=== PATIENT | male | born 1975 | race Caucasian/White ===

== ENCOUNTER 2024-07-16 22:42 | Emergency (ER) | payer MEDICAID, SELFPAY ==
[2024-07-16 23:12] VITALS: BP 147/80; PULSE 115; RESP 18; TEMP 36.1; O2SAT 95
--- NOTE | 2024-07-16 23:19 | PD.EDHEAD ---
ED Head Injury RME/HPI General Chief complaint: Fall Stated complaint: FELL, HIT HEAD, LACERATION Time Seen by Provider: 07/16/24 22:47 Source: patient and other (caregiver) Arrival date/time: 07/16/24 22:42 Mode of arrival: wheelchair Limitations: no limitations RME / HPI RME / HPI Narrative: 49yof presents to ED for facial laceration. Caregiver states patient got out of his wheelchair and fell hitting left side of face against a chair, obtained laceration to left eyebrow. No loc reported. No medications or treatments cover stripper. Tetanus vacc utd. Related Data Home Medications ?Medication ?Instructions ?Recorded ?Confirmed clonidine HCl 0.1 mg tablet 0.1 mg PO TID #0 tabs 02/21/14 08/24/23 lamotrigine 100 mg tablet 200 mg PO BID #0 tabs 02/21/14 08/24/23 (Lamictal) montelukast 10 mg tablet 10 mg PO QDAY #0 tabs 02/21/14 08/24/23 (Singulair) atorvastatin 10 mg tablet (Lipitor) 10 mg PO QPM 10/09/18 08/24/23 acetaminophen 325 mg tablet 650 mg PO Q6H PRN Fever Or Pain 04/21/19 08/24/23 calcium 600 mg (as 1 tab PO QDAY 04/21/19 08/24/23 carbonate)-vitamin D3 10 mcg (400 unit) tablet (Calcium 600 + D(3)) divalproex 500 mg tablet,delayed 500 mg PO DAILY 04/21/19 08/24/23 release (Depakote) loratadine 10 mg tablet 10 mg PO DAILY 04/21/19 08/24/23 metoprolol succinate 50 mg 50 mg PO QDAY 04/21/19 08/24/23 tablet,extended release 24 hr polyethylene glycol 3350 17 gram 17 g PO QAM 04/21/19 08/24/23 oral powder packet risperidone 0.5 mg tablet 0.5 mg PO BID 04/21/19 08/24/23 risperidone 4 mg tablet 4 mg PO BID 04/21/19 08/24/23 aspirin 81 mg tablet,delayed 81 mg PO QDAY 05/24/20 08/24/23 release (Adult Aspirin Regimen) amitriptyline 50 mg tablet 50 mg PO HS 09/19/22 08/24/23 divalproex 250 mg tablet,delayed 250 mg PO QPM 09/19/22 08/24/23 release loperamide 2 mg capsule 2 mg PO Q6H PRN Diarrhea 09/19/22 08/24/23 quetiapine 100 mg tablet 100 mg PO BID 09/19/22 08/24/23 Allergies Allergy/AdvReac Type Severity Reaction Status Date / Time No Known Allergies Allergy Verified 12/19/23 10:08 Review of Systems Review of Systems Systems Reviewed: All systems reviewed, normal except as documented Constitutional Constitutional: Denies headache(s) ENT Ears, Nose, Mouth, and Throat: Denies dizziness and Denies headache(s) Cardiovascular Cardiovascular: Denies syncope Gastrointestinal Gastrointestinal: Denies nausea and Denies vomiting Integumentary/Breasts Comments: Reports laceration Neurologic Neurologic: Denies dizziness, Denies headache(s) and Denies syncope Past Medical History Past Medical History NEUROLOGIC: Positive Seizures CARDIAC: Positive Hypertension GASTROINTESTINAL: Positive Gastroesophageal Reflux Disease PSYCHO/SOCIAL: Positive Depression and Behavior Problems OTHER HISTORY: Positive Developmental Delay and Falls Social History SMOKING STATUS: Never smoker SECOND HAND EXPOSURE: No SUBSTANCE USE: does not use ED Exam General Limitations: Present no limitations General appearance: Present alert and in no apparent distress Head Head exam: Present normocephalic and other (3cm laceration to left eyebrow with surrounding swelling, contusion. Moderate gaping, no active bleeding) Eye Eye exam: Present normal appearance, PERRL and EOMI ENT ENT exam: Present normal exam and mucous membranes moist Neck Neck exam: Present normal inspection and full ROM Chest Chest inspection: Present normal inspection and symmetric chest wall rise Respiratory Respiratory exam: Present normal lung sounds bilaterally; Absent respiratory distress Cardiovascular Cardiovascular exam: Present normal rhythm and tachycardia Extremities Exam Extremities exam: Absent tenderness Neurological Exam Neurological exam: Present alert and other (Neuro at baseline) Psychiatric Psychiatric exam: Present normal affect and normal mood Skin Skin exam: Present warm, dry and normal color Course Quality Measures none Vital Signs Vital signs: Vital Signs Temperature 97 F 07/16/24 23:12 Pulse Rate 115 H 07/16/24 23:12 Respiratory Rate 18 07/16/24 23:12 Blood Pressure 147/80 H 07/16/24 23:12 Pulse Oximetry (%) 95 07/16/24 23:12 Oxygen Delivery Method Room Air 07/16/24 23:12 Procedures -ED Laceration Laceration 1: Site: face (left eyebrow) Side (If applicable): left Size (cm): 3 Description: linear Depth: simple, single layer Local Anesthetic: lidocaine 1% Amount of anesthesia used (mL): 2 Size (cm): 4-0 Number of sutures: 2 Technique: simple, interrupted Head Injury MDM Narrative MDM Narrative:: 49yof presents to ED for facial laceration. Caregiver states patient got out of his wheelchair and fell hitting left side of face against a chair, obtained laceration to left eyebrow. No loc reported. No medications or treatments cover stripper. Tetanus vacc utd. Laceration repaired with sutures. Patient tolerated procedure well, condition improved. Home wound care discussed. Instructed to return in 7 to 10 days for suture removal. Stable for discharge, RTED precautions given. Patient data External records reviewed:: [facility] previous records (12/19/23 ED visit for chin laceration) Clinical information provided by:: superintendent meter tests Social determinants that could affect healthcare access:: none Patient has the following chronic illnesses:: developmental delay How is presenting disease/condition affected by chronic disease/condition?: exacerbated by Evaluation data The following diagnostics were reviewed and interpreted by me:: other (specify) (none) Lab and/or radiology exams considered but not ordered:: Facial CT: do not suspect fx based on hx and exam Interpretation Summary: na Medications / Prescriptions Medications or Prescriptions considered but not ordered:: no antibiotics recommended at this time Medication administrations:: lidocaine local infiltration Consultations Consultation(s) initiated? (list below): No Diagnosis Differential diagnosis head injury: other (laceration, abrasion, avulsion, contusion, hematoma) Most likely diagnosis given after review of the tests above:: facial laceration Admission Indicated Admission indicated?: not indicated Admission Request Was there a request for admission?: No Disposition Plan Disposition Plan: Discharge Discharge Attestation Discharge Attestation: The patient and all family members were given an opportunity to ask questions and understood the discharge instructions. Discharge instructions specifically effects, indications for sooner follow up or return to the emergency department, and the expected course of current diagnosis. Patient condition: Stable Discharge Plan Plan Patient Disposition: HOME (Self Care) Patient condition on transfer: Stable Prescriptions/Referrals Prescriptions/Med Rec: No Action clonidine HCl 0.1 MG tablet 0.1 mg PO TID Qty: 0 montelukast [Singulair] 10 MG tablet 10 mg PO QDAY Qty: 0 lamotrigine [Lamictal] 100 MG tablet 200 mg PO BID Qty: 0 aspirin [Adult Aspirin Regimen] 81 mg Tablet,Delayed Release (Dr/Ec) 81 mg PO QDAY atorvastatin [Lipitor] 10 mg Tablet 10 mg PO QPM acetaminophen 325 mg Tablet 650 mg PO Q6H PRN (Reason: Fever Or Pain) polyethylene glycol 3350 17 gram Powder In Packet 17 g PO QAM metoprolol succinate 50 mg Tablet Extended Release 24 Hr 50 mg PO QDAY Rx Instructions: HOLD IF LESS THAN 100/60 OR HR LESS THAN 60/MIN FOR HYPERTENTION. risperidone 4 mg Tablet 4 mg PO BID Rx Instructions: GIVE 4 MG WITH 0.5 MG FOR TOTAL OF 4.5MG BID loratadine 10 mg Tablet 10 mg PO DAILY Rx Instructions: FOR NASAL DISCHARGE OR STUFFINESS. risperidone 0.5 mg Tablet 0.5 mg PO BID Rx Instructions: GIVE 0.5 MG WITH 4 MG FOR TOTAL OF 4.5 MG BID. calcium carbonate-vitamin D3 [Calcium 600 + D(3)] 600 mg(1,500mg) -400 unit Tablet 1 tab PO QDAY divalproex [Depakote] 500 mg Tablet,Delayed Release (Dr/Ec) 500 mg PO DAILY divalproex 250 mg tablet,delayed release (DR/EC) 250 mg PO QPM loperamide 2 mg Capsule 2 mg PO Q6H PRN (Reason: Diarrhea) amitriptyline 50 mg tablet 50 mg PO HS quetiapine 100 mg tablet 100 mg PO BID Referrals: No Primary/Family,Physician [Primary Care Provider] - In 1 week Problem List Clinical Impression: Facial laceration Patient/Caregiver Discharge Instructions Education Materials: ED Laceration, Face: Stitches or Tape Additional Instructions: Return to PCP or ER in 7 to 10 days for suture removal Print Language: Chadian Stand Alone Forms: Sussy Award Info., Patient Portal Info Letter PA/BOOTMAKER Supervising Physician PA/BOOTMAKER Supervising Physician: Shweta
== END 2024-07-16 23:44 | disposition home or self-care (01) ==
PROVIDERS: Emergency Provider Emergency Medicine
DX: S01.81XA Laceration without foreign body of other part of head, initial encounter (principal); W05.0XXA Fall from non-moving wheelchair, initial encounter
CPT/HCPCS: 12013; 99283

== ENCOUNTER 2024-08-28 06:35 | Day surgery (SDC) | payer MEDICAID, SELFPAY ==
[2024-08-25 11:17] VITALS: BMI 23.7
[2024-08-28] VITALS (11 sets, daily range): BP systolic 128–143; BP diastolic 84–103; PULSE 70–98; RESP 11–18; TEMP 36.4–36.8; O2SAT 94–97; BMI 25.0
[2024-08-28] MEDS: DiphenhydrAMINE INJ 50 MG/ML VIAL 25 MG IV (07:27)
[2024-08-28] MEDS: SODIUM CHLORIDE 0.9% 500 ML 500 ML 20 ML IV (07:27)
[2024-08-28] MEDS: fentaNYL CIT INJ 50 mCg/ML AMP 2ML (ASD USE ONLY) IV (07:27)
[2024-08-28] MEDS: MIDAZOLAM INJ 1 MG/ML VIAL 2 ML (ASD USE ONLY) 2 MG IV (07:31)
== END 2024-08-28 08:31 | disposition home or self-care (01) ==
PROVIDERS: PCP Nurse Practitioner Family; Referring Provider Surgery; Visit Provider Surgery
PROC: 0DBE8ZX Excision of Large Intestine, Via Natural or Artificial Opening Endoscopic, Diagnostic (ICD-10-PCS; CPT 45380; principal; 2024-08-28 07:30)
DX: D12.4 Benign neoplasm of descending colon (principal); D12.0 Benign neoplasm of cecum; R19.5 Other fecal abnormalities; I10 Essential (primary) hypertension; Z79.899 Other long term (current) drug therapy; Z79.82 Long term (current) use of aspirin
CPT/HCPCS: 45380; J1200; J2250; J3010; J7040

== ENCOUNTER 2024-09-04 15:31 | Emergency (ER) | payer MEDICAID, SELFPAY ==
[2024-09-04 15:33] VITALS: BMI 25.8
[2024-09-04 15:47] VITALS: BP 118/81; PULSE 76; RESP 17; TEMP 36.7; O2SAT 98
--- NOTE | 2024-09-04 16:13 | EDNOTE_ITS ---
<Statement entered by Trina Mckeon MD - 09/07/24 06:24> As co-signing physician, I was present and available for consult prn. I concur with the plan and care as documented by the midlevel provider. ED Head Injury RME/HPI General Chief complaint: Head Injury Stated complaint: LAC TO CHIN S/P FALL TODAY Time Seen by Provider: 09/04/24 15:40 Source: patient Arrival date/time: 09/04/24 15:31 49-year-old male with a history of cerebral palsy, hyperlipidemia, hypertension, presents to the emergency room with a chief complaint of a laceration to his chin after a ground-level fall that occurred today. Patient was wearing his head protection gear. There was no loss of consciousness or vomiting. Mode of arrival: ambulatory Limitations: no limitations Related Data Home Medications ?Medication ?Instructions ?Recorded ?Confirmed clonidine HCl 0.1 mg tablet 0.1 mg PO TID #0 tabs 01/2508/25/24 lamotrigine 100 mg tablet 200 mg PO BID #0 tabs 08/25/24 (Lamictal) montelukast 10 mg tablet 10 mg PO QDAY #0 tabs 08/25/24 (Singulair) atorvastatin 10 mg tablet (Lipitor) 10 mg PO QPM 10/0908/25/24 acetaminophen 325 mg tablet 650 mg PO Q6H PRN Fever Or Pain 04/21/19 08/25/24 calcium 600 mg (as 1 tab PO QDAY 04/21/1908/25 carbonate)-vitamin D3 10 mcg (400 unit) tablet (Calcium 600 + D(3)) divalproex 500 mg tablet,delayed 500 mg PO DAILY 04/2108/25/24 release (Depakote) loratadine 10 mg tablet 10 mg PO DAILY 04/21/1906/20 metoprolol succinate 50 mg 50 mg PO QDAY 04/21/1906/20 tablet,extended release 24 hr polyethylene glycol 3350 17 gram 17 g PO QAM 04/21/19 08/25/24 oral powder packet risperidone 0.5 mg tablet 0.5 mg PO BID 04/21/1908/25 risperidone 4 mg tablet 4 mg PO BID 04/21/19 5 aspirin 81 mg tablet,delayed 81 mg PO QDAY 05/24/20 release (Adult Aspirin Regimen) amitriptyline 50 mg tablet 50 mg PO HS 09/19/22 divalproex 250 mg tablet,delayed 250 mg PO QPM 3 08/25/24 release loperamide 2 mg capsule 2 mg PO Q6H PRN Diarrhea 08/25/24 quetiapine 100 mg tablet 100 mg PO BID 09/19/2208/25 Allergies Allergy/AdvReac Type Severity Reaction Status Date / Time No Known Allergies Allergy Verified 09/04/24 15:32 Review of Systems Review of Systems Systems Reviewed: All systems reviewed, normal except as documented Constitutional Constitutional: Reports system reviewed and no additional complaints, except as documented, Denies fatigue, Denies fever(s), Denies headache(s) and Denies weakness Eyes Eyes: Reports system reviewed and no additional complaints, except as documented, Denies blurry vision and Denies change in vision ENT Ears, Nose, Mouth, and Throat: Reports system reviewed and no additional complaints, except as documented, Denies otalgia, Denies headache(s), Denies nasal congestion, Denies throat swelling and Denies vertigo Cardiovascular Cardiovascular: Reports system reviewed and no additional complaints, except as documented, Denies chest pain, Denies dyspnea and Denies dyspnea on exertion Respiratory Respiratory: Reports system reviewed and no additional complaints, except as documented, Denies chest congestion, Denies cough, Denies dyspnea, Denies dyspnea on exertion and Denies wheezing Gastrointestinal Gastrointestinal: Reports system reviewed and no additional complaints, except as documented, Denies abdominal pain, Denies cramping, Denies nausea and Denies vomiting Genitourinary Genitourinary: Reports system reviewed and no additional complaints, except as documented, Denies dysuria and Denies hematuria Musculoskeletal Musculoskeletal: Reports system reviewed and no additional complaints, except as documented and Denies back pain Integumentary/Breasts Skin/Breast: Reports system reviewed and no additional complaints, except as documented and Reports wounds Neurologic Neurologic: Reports system reviewed and no additional complaints, except as documented, Denies confusion, Denies headache(s), Denies lack of coordination, Denies vertigo and Denies weakness Psychiatric Psychiatric: Reports system reviewed and no additional complaints, except as documented, Denies anxiety, Denies confusion, Denies depression, Denies paranoia, Denies suicidal ideation and Denies tactile hallucinations Endocrine Endocrine: Reports system reviewed and no additional complaints, except as documented and Denies fatigue Hematologic/Lymphatic Hematologic/Lymphatic: Reports system reviewed and no additional complaints, except as documented and Denies lymphadenopathy Allergic/Immunologic Allergic/Immunologic: Reports system reviewed and no additional complaints, except as documented, Denies throat swelling, Denies urticaria and Denies wheezing Past Medical History Past Medical History NEUROLOGIC: Positive Neurological Disorders (BRAIN SHUNT); Negative Seizures CARDIAC: Positive Cardiac Disorders, Hypercholesterolemia and Hypertension; Negative Congestive Heart Failure RESPIRATORY: Negative Chronic Obstructive Pulmonary Disease (COPD) or Asthma GASTROINTESTINAL: Positive Gastroesophageal Reflux Disease; Negative Gastrointestinal Disorders or Hepatitis GENITOURINARY: Negative Genitourinary Disorders or Renal Disease REPRODUCTIVE: Negative Testicular Cancer MUSCULOSKELETAL: Negative Musculoskeletal Disorders ENDOCRINE: Negative Endocrine Disorders, Diabetes Mellitus Type 1 or Diabetes Mellitus Type 2 HEMATOLOGIC: Negative Blood Disorders or Sickle Cell Disease PSYCHO/SOCIAL: Positive Depression and Behavior Problems OTHER HISTORY: Positive Developmental Delay and Falls (UNSTEADY GAIT, USES W/C AT TIMES); Negative Autoimmune Disease, Blood Transfusions, Anesthesia Reactions, MRSA, VRSA, Vancomycin-Resistant Enterococci, Human Immunodeficiency Virus (HIV), Chicken Pox, Measles, Mumps, Rubella (Stateless Measles), Pertussis, Clostridium Difficile, Cancer or Testicular Cancer Surgical History SURGICAL: Positive Brain Shunt; Negative Vasectomy Social History SMOKING STATUS: Never smoker SECOND HAND EXPOSURE: No SUBSTANCE USE: does not use ED Exam General Limitations: Present no limitations General appearance: Present alert and in no apparent distress Head Head exam: Present atraumatic, normocephalic and normal inspection Expanded Head Exam Head exam physical: Present laceration; Absent abrasion, contusion, hematoma, raccoon eyes, Walters's sign, tenderness of temporal artery, CSF rhinorrhea or CSF otorrhea Head image: 2 1. 4 cm laceration to the chin Eye Eye exam: Present normal appearance, PERRL and EOMI ENT ENT exam: Present normal exam, normal oropharynx and mucous membranes moist Neck Neck exam: Present normal inspection, full ROM and trachea midline Chest Chest inspection: Present normal inspection and symmetric chest wall rise Respiratory Respiratory exam: Present normal lung sounds bilaterally Cardiovascular Cardiovascular exam: Present regular rate, normal rhythm and normal heart sounds Abdominal Exam Abdominal exam: Present soft and normal bowel sounds Extremities Exam Extremities exam: Present normal inspection and full ROM Back Exam Back exam: Present normal inspection and full ROM Neurological Exam Neurological exam: Present alert, oriented X3 and CN II-XII intact Psychiatric Psychiatric exam: Present normal affect and normal mood Skin Skin exam: Present warm, dry, intact and normal color Course Quality Measures none Orders Category Date Time Status Set Up Suture Tray STAT Care 09/04/24 15:50 Completed Wound Care NOW Care 09/04/24 15:50 Completed Lidocaine 1% 20 ml [Xylocaine 1% 20 ML] Med 09/04/24 15:50 Discontinued 20 ml INFL X1 ONE TET,DIP/PERT AC (Adult)-Tdap [Boostrix Adult (Tdap) Med 09/04/24 15:50 Discontinued Vacc] 0.5 ml IMI .ONCE ONE Vital Signs Vital signs: Vital Signs Temperature 98.0 F 09/04/24 15:47 Pulse Rate 76 09/04/24 15:47 Respiratory Rate 17 09/04/24 15:47 Blood Pressure 118/81 09/04/24 15:47 Pulse Oximetry (%) 98 09/04/24 15:47 Oxygen Delivery Method Room Air 09/04/24 15:47 O2 saturation 98% within normal limits Procedures -ED Laceration Laceration 1: Site: face Size (cm): 4 Description: linear Depth: simple, single layer Local Anesthetic: lidocaine 1% Amount of anesthesia used (mL): 4 Pre-repair: irrigated extensively Skin layer closed with: nylon Size (cm): 4-0 Number of sutures: 5 Technique: simple, interrupted Head Injury MDM Narrative MDM Narrative:: 49-year-old male with a history of cerebral palsy, hyperlipidemia, hypertension, presents to the emergency room with a chief complaint of a laceration to his chin after a ground-level fall that occurred today. Patient was wearing his head protection gear. There was no loss of consciousness or vomiting. Physical examination shows a 4 cm laceration to the chin. The patient fell forward and hit his head. The patient was wearing all of his cerebral palsy equipment according to caregiver there was no loss of consciousness and there is no vomiting there is no altered mental status. The laceration occured 1 hour ago The mechanism of injury was a ground-level fall Sensation is intact. There is full ROM. There is no exposed tendons. No foreign bodies. Lidocaine 1% was used for anesthesia. The wound was irrigated extensively with normal saline. 5 sutures were placed. A dressing was placed. There were no complications. Patient was educated to keep the area clean and dry for 24 hours, then clean daily with soap and water. Patient was educated to return for any signs of infection including swelling pain redness pus or fever and to make an appointment with primary care provider in 48 hours. Patient was educated to follow up with primary or return to emergency room for suture removal in the next 7-10 days. Patient data External records reviewed:: [facility] previous records Clinical information provided by:: patient Social determinants that could affect healthcare access:: none Patient has the following chronic illnesses:: Cerebral palsy, hyperlipidemia, developmentally delayed How is presenting disease/condition affected by chronic disease/condition?: e xacerbated by Evaluation data The following diagnostics were reviewed and interpreted by me:: lab results and radiology exam(s) Lab and/or radiology exams considered but not ordered:: Labs and radiology exams considered and ordered Interpretation Summary: N/A Medications / Prescriptions Medications or Prescriptions considered but not ordered:: Medication given Medication administrations:: Medication Administration History Discontinued Medications Diphtheria/Tetanus/Acell Pertussis (Diphth,Pertuss(Acell),Tet Vac 0.5 Ml Syr- Adult) 0.5 ml IMi .ONCE ONE Stop: 09/04/24 15:51 Lidocaine HCl (Lidocaine Hcl 1% 20 Ml Vial) 20 ml INFL X1 ONE Stop: 09/04/24 15:51 Last Admin: 09/04/24 16:27 Dose: 20 ml Documented By: OA Medication given Consultations Consultation(s) initiated? (list below): No Diagnosis Differential diagnosis head injury: concussion without loss of consciousness, closed head injury, concussion with loss of consciousness and other (Laceration) Most likely diagnosis given after review of the tests above:: Laceration/closed head injury Admission Indicated Admission indicated?: not indicated Admission Request Was there a request for admission?: No Disposition Plan Disposition Plan: Discharge Discharge Attestation Discharge Attestation: The patient and all family members were given an opportunity to ask questions and understood the discharge instructions. Discharge instructions specifically effects, indications for sooner follow up or return to the emergency department, and the expected course of current diagnosis. Patient condition: Stable Discharge Plan Plan Patient Disposition: HOME (Self Care) Discharge Disposition comment: Stable Prescriptions/Referrals Prescriptions/Med Rec: No Action clonidine HCl 0.1 MG tablet 0.1 mg PO TID Qty: 0 montelukast [Singulair] 10 MG tablet 10 mg PO QDAY Qty: 0 lamotrigine [Lamictal] 100 MG tablet 200 mg PO BID Qty: 0 aspirin [Adult Aspirin Regimen] 81 mg Tablet,Delayed Release (Dr/Ec) 81 mg PO QDAY atorvastatin [Lipitor] 10 mg Tablet 10 mg PO QPM acetaminophen 325 mg Tablet 650 mg PO Q6H PRN (Reason: Fever Or Pain) polyethylene glycol 3350 17 gram Powder In Packet 17 g PO QAM metoprolol succinate 50 mg Tablet Extended Release 24 Hr 50 mg PO QDAY Rx Instructions: HOLD IF LESS THAN 100/60 OR HR LESS THAN 60/MIN FOR HYPERTENTION. risperidone 4 mg Tablet 4 mg PO BID Rx Instructions: GIVE 4 MG WITH 0.5 MG FOR TOTAL OF 4.5MG BID loratadine 10 mg Tablet 10 mg PO DAILY Rx Instructions: FOR NASAL DISCHARGE OR STUFFINESS. risperidone 0.5 mg Tablet 0.5 mg PO BID Rx Instructions: GIVE 0.5 MG WITH 4 MG FOR TOTAL OF 4.5 MG BID. calcium carbonate-vitamin D3 [Calcium 600 + D(3)] 600 mg(1,500mg) -400 unit Tablet 1 tab PO QDAY divalproex [Depakote] 500 mg Tablet,Delayed Release (Dr/Ec) 500 mg PO DAILY divalproex 250 mg tablet,delayed release (DR/EC) 250 mg PO QPM loperamide 2 mg Capsule 2 mg PO Q6H PRN (Reason: Diarrhea) amitriptyline 50 mg tablet 50 mg PO HS quetiapine 100 mg tablet 100 mg PO BID Problem List Clinical Impression: Laceration Patient/Caregiver Discharge Instructions Additional Instructions: Please follow-up with your primary care provider in the next 24 to 48 hours. Your wound was closed and approximated. You can return in 7 to 10 days for suture removal. Please keep the area clean and dry for the next 24 hours and then clean it with soap and water For any evidence of worsening signs or symptoms return to the emergency room immediately Print Language: Luxembourgish Stand Alone Forms: Sussy Award Info., Patient Portal Info Letter PA/PRUNE WASHER Supervising Physician PA/PRUNE WASHER Supervising Physician: Dr. Su
[2024-09-04] MEDS: LIDOCAINE HCL 1% 20 ML VIAL INFL (16:27)
== END 2024-09-04 16:31 | disposition home or self-care (01) ==
LOC: SERX 16:21
PROVIDERS: Emergency Provider Family Medicine
DX: S01.81XA Laceration without foreign body of other part of head, initial encounter (principal); W18.30XA Fall on same level, unspecified, initial encounter
CPT/HCPCS: 12013; 99283; J3490

== ENCOUNTER 2024-12-05 16:20 | Emergency (ER) | payer MEDICAID, SELFPAY ==
[2024-12-05 16:21] VITALS: BMI 23.5
--- NOTE | 2024-12-05 16:58 | PD.EDWOUND ---
ED Wound/Laceration-RME/HPI General Chief Complaint: Fall Stated Complaint: FELL; LAC ON CHIN Time Seen by Provider: 12/05/24 16:37 Arrival date/time: 12/05/24 16:20 49-year-old male with significant medical history currently in a correction presents with caregiver who reports there was a witnessed fall today patient fell forward while having a behavioral incident hitting his chin there was no reported loss of conscious or vomiting reports that the patient is acting appropriately Limitations: no limitations Related Data Home Medications ?Medication ?Instructions ?Recorded ?Confirmed clonidine HCl 0.1 mg tablet 0.1 mg PO TID #0 tabs 02/21/14 08/25/24 lamotrigine 100 mg tablet 200 mg PO BID #0 tabs 02/21/14 08/25/24 (Lamictal) montelukast 10 mg tablet 10 mg PO QDAY #0 tabs 02/21/14 08/25/24 (Singulair) atorvastatin 10 mg tablet (Lipitor) 10 mg PO QPM 10/09/18 08/25/24 acetaminophen 325 mg tablet 650 mg PO Q6H PRN Fever Or Pain 04/21/19 08/25/24 calcium 600 mg (as 1 tab PO QDAY 04/21/19 08/25/24 carbonate)-vitamin D3 10 mcg (400 unit) tablet (Calcium 600 + D(3)) divalproex 500 mg tablet,delayed 500 mg PO DAILY 04/21/19 08/25/24 release (Depakote) loratadine 10 mg tablet 10 mg PO DAILY 04/21/19 08/25/24 metoprolol succinate 50 mg 50 mg PO QDAY 04/21/19 08/25/24 tablet,extended release 24 hr polyethylene glycol 3350 17 gram 17 g PO QAM 04/21/19 08/25/24 oral powder packet risperidone 0.5 mg tablet 0.5 mg PO BID 04/21/19 08/25/24 risperidone 4 mg tablet 4 mg PO BID 04/21/19 08/25/24 aspirin 81 mg tablet,delayed 81 mg PO QDAY 05/24/20 08/25/24 release (Adult Aspirin Regimen) amitriptyline 50 mg tablet 50 mg PO HS 09/19/22 08/25/24 divalproex 250 mg tablet,delayed 250 mg PO QPM 09/19/22 08/25/24 release loperamide 2 mg capsule 2 mg PO Q6H PRN Diarrhea 09/19/22 08/25/24 quetiapine 100 mg tablet 100 mg PO BID 09/19/22 08/25/24 Allergies Allergy/AdvReac Type Severity Reaction Status Date / Time No Known Allergies Allergy Verified 12/05/24 16:23 Review of Systems Review of Systems Systems Reviewed: All systems reviewed, normal except as documented Constitutional Constitutional: Reports system reviewed and no additional complaints, except as documented, Denies fever(s) and Denies headache(s) Eyes Eyes: Reports system reviewed and no additional complaints, except as documented and Denies blurry vision ENT Ears, Nose, Mouth, and Throat: Reports system reviewed and no additional complaints, except as documented, Denies headache(s), Denies nasal congestion and Denies nasal discharge Cardiovascular Cardiovascular: Reports system reviewed and no additional complaints, except as documented, Denies chest pain and Denies dyspnea Respiratory Respiratory: Reports system reviewed and no additional complaints, except as documented, Denies chest congestion, Denies cough and Denies dyspnea Gastrointestinal Gastrointestinal: Reports system reviewed and no additional complaints, except as documented and Denies abdominal pain Integumentary/Breasts Skin/Breast: Reports system reviewed and no additional complaints, except as documented, Denies rash and Reports wounds (Laceration chin) Neurologic Neurologic: Reports system reviewed and no additional complaints, except as documented, Reports as per HPI and Denies headache(s) Past Medical History Past Medical History NEUROLOGIC: Positive Neurological Disorders (BRAIN SHUNT); Negative Seizures CARDIAC: Positive Cardiac Disorders, Hypercholesterolemia and Hypertension; Negative Congestive Heart Failure RESPIRATORY: Negative Chronic Obstructive Pulmonary Disease (COPD) or Asthma GASTROINTESTINAL: Positive Gastroesophageal Reflux Disease; Negative Gastrointestinal Disorders or Hepatitis GENITOURINARY: Negative Genitourinary Disorders or Renal Disease REPRODUCTIVE: Negative Testicular Cancer MUSCULOSKELETAL: Negative Musculoskeletal Disorders ENDOCRINE: Negative Endocrine Disorders, Diabetes Mellitus Type 1 or Diabetes Mellitus Type 2 HEMATOLOGIC: Negative Blood Disorders or Sickle Cell Disease PSYCHO/SOCIAL: Positive Depression and Behavior Problems OTHER HISTORY: Positive Developmental Delay and Falls (UNSTEADY GAIT, USES W/C AT TIMES); Negative Autoimmune Disease, Blood Transfusions, Anesthesia Reactions, MRSA, VRSA, Vancomycin-Resistant Enterococci, Human Immunodeficiency Virus (HIV), Chicken Pox, Measles, Mumps, Rubella ([place] Measles), Pertussis, Clostridium Difficile, Cancer or Testicular Cancer Surgical History SURGICAL: Positive Brain Shunt; Negative Vasectomy Social History SMOKING STATUS: Never smoker SECOND HAND EXPOSURE: No SUBSTANCE USE: does not use ED Exam General Limitations: Present no limitations General appearance: Present alert and in no apparent distress Expanded Head Exam Head image:  1. Laceration chin Eye Eye exam: Present normal appearance, PERRL and EOMI ENT ENT exam: Present normal exam, normal oropharynx and mucous membranes moist Neck Neck exam: Present normal inspection, full ROM and trachea midline Chest Chest inspection: Present normal inspection and symmetric chest wall rise Respiratory Respiratory exam: Present normal lung sounds bilaterally Cardiovascular Cardiovascular exam: Present regular rate, normal rhythm and normal heart sounds Abdominal Exam Abdominal exam: Present soft and normal bowel sounds Extremities Exam Extremities exam: Present normal inspection and full ROM Back Exam Back exam: Present normal inspection and full ROM Neurological Exam Neurological exam: Present alert, oriented X3, CN II-XII intact, normal gait and reflexes normal; Absent motor sensory deficit Psychiatric Psychiatric exam: Present normal affect and normal mood Skin Skin exam: Present warm, dry and other (Laceration chin) Course Quality Measures none Vital Signs Vital signs: O2 saturation 98% room air within the limits PROCEDURES: Laceration Laceration 1: Site: face Size (cm): 3 Description: irregular Depth: simple, single layer Local Anesthetic: lidocaine 1% Amount of anesthesia used (mL): 4 Pre-repair: wound explored and irrigated extensively Skin layer closed with: nylon Suture size (cm): 5-0 Number of sutures: 3 Technique: simple, interrupted Wound / Laceration MDM Narrative MDM Narrative:: 49-year-old male with significant medical history currently in a correction presents with caregiver who reports there was a witnessed fall today patient fell forward while having a behavioral incident hitting his chin there was no reported loss of conscious or vomiting reports that the patient is acting appropriately On exam patient well-appearing patient does not appear ill or toxic no acute distress Patient has laceration approximately 3 cm to the chin Wound irrigated copiously laceration. Total of 3 sutures wounds well-approximated active bleeding, discharge Patient discharged home in no distress to follow-up with primary care doctor in the next 24 to 48 hours and for any worsening symptoms to return to the ER immediately Patient data External records reviewed:: [facility] previous records Clinical information provided by:: patient Social determinants that could affect healthcare access:: none Patient has the following chronic illnesses:: See history How is presenting disease/condition affected by chronic disease/condition?: caused by Evaluation data The following diagnostics were reviewed and interpreted by me:: other (specify) Lab and/or radiology exams considered but not ordered:: N/A Interpretation Summary: Considered not indicated Medications / Prescriptions Medications or Prescriptions considered but not ordered:: Given Medication administrations:: Given Consultations Consultation(s) initiated? (list below): No Diagnosis Wound Differential Diagnosis: laceration, abscess, abrasion and avulsion of skin Most likely diagnosis given after review of the tests above:: Laceration Admission Indicated Admission indicated?: not indicated Admission Request Was there a request for admission?: No Disposition Plan Disposition Plan: Discharge Discharge Attestation Discharge Attestation: The patient and all family members were given an opportunity to ask questions and understood the discharge instructions. Discharge instructions specifically effects, indications for sooner follow up or return to the emergency department, and the expected course of current diagnosis. Patient condition: Stable Discharge Plan Plan Patient Disposition: HOME (Self Care) Discharge Disposition comment: Stable Prescriptions/Referrals Prescriptions/Med Rec: No Action clonidine HCl 0.1 MG tablet 0.1 mg PO TID Qty: 0 montelukast [Singulair] 10 MG tablet 10 mg PO QDAY Qty: 0 lamotrigine [Lamictal] 100 MG tablet 200 mg PO BID Qty: 0 aspirin [Adult Aspirin Regimen] 81 mg Tablet,Delayed Release (Dr/Ec) 81 mg PO QDAY atorvastatin [Lipitor] 10 mg Tablet 10 mg PO QPM acetaminophen 325 mg Tablet 650 mg PO Q6H PRN (Reason: Fever Or Pain) polyethylene glycol 3350 17 gram Powder In Packet 17 g PO QAM metoprolol succinate 50 mg Tablet Extended Release 24 Hr 50 mg PO QDAY Rx Instructions: HOLD IF LESS THAN 100/60 OR HR LESS THAN 60/MIN FOR HYPERTENTION. risperidone 4 mg Tablet 4 mg PO BID Rx Instructions: GIVE 4 MG WITH 0.5 MG FOR TOTAL OF 4.5MG BID loratadine 10 mg Tablet 10 mg PO DAILY Rx Instructions: FOR NASAL DISCHARGE OR STUFFINESS. risperidone 0.5 mg Tablet 0.5 mg PO BID Rx Instructions: GIVE 0.5 MG WITH 4 MG FOR TOTAL OF 4.5 MG BID. calcium carbonate-vitamin D3 [Calcium 600 + D(3)] 600 mg(1,500mg) -400 unit Tablet 1 tab PO QDAY divalproex [Depakote] 500 mg Tablet,Delayed Release (Dr/Ec) 500 mg PO DAILY divalproex 250 mg tablet,delayed release (DR/EC) 250 mg PO QPM loperamide 2 mg Capsule 2 mg PO Q6H PRN (Reason: Diarrhea) amitriptyline 50 mg tablet 50 mg PO HS quetiapine 100 mg tablet 100 mg PO BID Problem List Clinical Impression: Facial laceration Patient/Caregiver Discharge Instructions Education Materials: ED Laceration: All Closures Additional Instructions: Please follow up with your primary care doctor in the next 24-48hrs for any worsening symptoms return here immediately Please have sutures removed in 7 days Print Language: B[place]ud[place] Stand Alone Forms: [employer]ussy Award Info., Patient Portal Info Letter PA/[employer] Supervising Physician PA/[employer] Supervising Physician: Dr. ysabel MONTALVO Attestation MD Attestation The patient was seen by the midlevel practitioner. I, the co-signing physician, was present during the entire ER visit. While I did not physically examine the patient, I was available for consultation as needed. I agree with the plan and documentation.
== END 2024-12-05 17:03 | disposition home or self-care (01) ==
PROVIDERS: Emergency Provider Family Medicine; PCP Nurse Practitioner Family
DX: S01.81XA Laceration without foreign body of other part of head, initial encounter (principal); W19.XXXA Unspecified fall, initial encounter
CPT/HCPCS: 12013; 99282